=== PATIENT | female | born 1965 | race Caucasian/White ===

== ENCOUNTER 2019-01-25 11:59 | Day surgery (SDC) | payer OTHER ==
[~2019-01-25] VITALS: Ht 157.4 cm; Wt 50.4 kg
[~2019-01-25 11:59] MED LIST: BACITRACIN15 GM TOP; IRON18 MG PO; KEFLEX500 MG PO; MULTI VITAMIN1 EACH PO
--- NOTE | 2019-01-25 15:04 | NUR ---
01/25/19 1504 Era Olson 1500-PATIENT ARRIVED TO PACU ON 2L NC AWAKE DROWSY DENIES PAIN OR NAUSEA. ABDOMEN SOFT ENCOURAGED TO PASS GAS. DOZES BACK TO SLEEP. RR EVEN.
--- NOTE | 2019-01-26 14:41 | OR ---
[facility] [address], [place] [address] Signed DATE OF OPERATION: 01/25/2019 SURGEON: Gideon Linda MD PREOPERATIVE DIAGNOSES: 1. Family history of colon cancer, paternal grandmother. 2. Screening colonoscopy. POSTOPERATIVE DIAGNOSIS: Polyps x3. PROCEDURE: Total colonoscopy to cecum with cold snare polypectomy x1 and cold morcellation polypectomy x2. ANESTHESIA: Intravenous sedation, fentanyl 100 mcg, and Versed 5 mg. INDICATION: This 53-year-old white woman is a patient of Dr. Ortega and formally Dr. Garcia. She is known to me from 2004 having undergone laparoscopic cholecystectomy. She is here for a screening colonoscopy on the basis of her age. She does have family history of colon cancer in a paternal grandmother. She has no symptoms of bleeding, diarrhea, or constipation herself. She understands the risk of bleeding, infection, and perforation related to colonoscopy and wished to proceed. FINDINGS: The prep was excellent. Complete colonoscopy was undertaken to the cecum without question. There were 3 polyps noted, one in the sigmoid, two in the rectosigmoid, all excised with combination of techniques. DESCRIPTION OF PROCEDURE: The patient was brought to the endoscopy suite and placed in lateral decubitus position given intravenous sedation to the point of slurred speech and nystagmus. Digital rectal examination was normal. An Olympus video colonoscope was passed in the rectum and manipulated throughout the colon ultimately intubating the cecum itself. The ileocecal valve and appendiceal orifice were normal. Electronically Signed By: GIDEON LINDA MD 01/26/19 1441 PATIENT NAME: EDEN RUBY OPERATIVE REPORT DATE OF : 69 REPORT #: [id number] PHYSICIAN: GIDEON LINDA MD PCP: Hanny GARCIA MD REPORT IS CONFIDENTIAL AND NOT TO BE RELEASED WITHOUT AUTHORIZATION [facility] [address], [place] [address] Signed The scope was withdrawn from the cecum and examination upon withdrawal of scope showed no sign of abnormality until approximately 60 mL from the anal verge where a sessile somewhat larger polyp was noted. This was excised with cold snare technique without problem. The lesion was removed and passed for pathology. Further withdrawal of scope showed two smaller such polyps in the rectosigmoid. Both were excised with cold morcellation technique. Retroflexed view of the rectum was normal. Scope was removed. The patient was taken to recovery room in good condition. CONCLUDING DIAGNOSIS: Polyps x3. PLAN: Repeat colonoscopy in 3 years, sooner if clinically indicated. We will review her pathology report as well. If all the polyps were hyperplastic, then consideration would be made for a more lengthy surveillance. MD DAVID Monge/FROILAN /[id number] cc: Lukasz Ortega MD Copies: LUKASZ ORTEGA MD ~ Electronically Signed By: GIDEON LINDA MD 01/26/19 1441 PATIENT NAME: EDEN RUBY OPERATIVE REPORT DATE OF : 69 REPORT #: [id number] PHYSICIAN: GIDEON LINDA MD PCP: Hanny GARCIA MD REPORT IS CONFIDENTIAL AND NOT TO BE RELEASED WITHOUT AUTHORIZATION
== END 2019-01-25 15:55 | disposition home or self-care (01) ==
LOC: OPS 11:59 → DS 12:01 → OPS 13:00
PROVIDERS: Surgery
PROC: 0DBN8ZZ Excision of Sigmoid Colon, Via Natural or Artificial Opening Endoscopic (ICD-10-PCS; principal; 2019-01-25 13:00)
DX: Z12.11 Encounter for screening for malignant neoplasm of colon (principal); D12.5 Benign neoplasm of sigmoid colon; D12.7 Benign neoplasm of rectosigmoid junction; Z80.0 Family history of malignant neoplasm of digestive organs; Z88.0 Allergy status to penicillin; Z90.49 Acquired absence of other specified parts of digestive tract
CPT/HCPCS: 99153; G0500; J2250; J3010; J7120

== ENCOUNTER 2025-05-26 09:39 | Day surgery (SDC) | payer OTHER ==
[~2025-05-26] VITALS: Ht 157.5 cm; Wt 49.1 kg
[~2025-05-26 09:39] MED LIST changes: +IBLOOD GLUCOSE TEST STRIP 1 EA TEST VI PRN; +LACTATED RINGER'S 1,000 ML IV SCH; +LIDOCAINE HCL 1% 5 ML SDV INJ ONE; +LIDOCAINE HCL 4% 50 ML BTL TOP SCH
[2025-05-26 10:09] VITALS: BP 105/74
[2025-05-26] MEDS ORDERED: LEVOTHYROXINE50 MCG PO (10:10)
[2025-05-26] MEDS ORDERED: MENEST0.3 MG PO (10:13)
[2025-05-26] MEDS ORDERED: PROGESTERONE200 MG PO (10:14)
[2025-05-26] MEDS ORDERED: MIDAZOLAM HCL 2 MG/2 ML VIAL ONE (10:48)
[2025-05-26] MEDS ORDERED: fentaNYL citrate 100 MCG/2 ML VIAL ONE (10:48)
[2025-05-26] MEDS ORDERED: MIDAZOLAM HCL 5 MG/5 ML VIAL ONE (10:50)
--- NOTE | 2025-05-26 11:35 | NUR ---
05/26/25 1135 Marli Quezada 1124- PT ARRIVES TO PACU IN STRETCHER. BREATHING IS EVEN AND UNLABORED. PT IS LOOKING AROUND PACU AND ORIENTED TO PACU. MONITORS PUT IN PLACE. PT DENIES PAIN AND NAUSEA. 2L OF O2 IN PLACE VIA NC. LR INFUSING. BEDSIDE REPORT RECIEVED.
[2025-05-26 13:28] VITALS: BP 94/67
--- NOTE | 2025-05-27 16:22 | OR ---
[facility] [address], [place] [address] Signed DATE OF OPERATION: 05/26/2025 SURGEON: Gideon Linda MD PREOPERATIVE DIAGNOSES: 1. Postprandial bloating and fullness. 2. History of malignancy of tongue, status post resection and therapy. POSTOPERATIVE DIAGNOSIS: Normal esophagus, stomach and duodenum. PROCEDURE: Esophagogastroduodenoscopy with biopsy. ANESTHESIA: Intravenous sedation, fentanyl 100 mcg, and Versed 3 mg. INDICATION: This 59-year-old white woman is a patient of MALACHI Giordano. She was referred with an epigastric hernia, which is incarcerated. It is not particularly painful at this time. A CT scan of the abdomen is performed on March 23, 2025, confirming a fat containing supraumbilical hernia. There was no evidence of other abnormality. She has noted weight loss over time, now down to 108 pounds, previously 119. The patient has history of partial glossectomy for malignancy as well as distant history of melanoma of the skin with resection. She has bloating fullness in addition to her weight loss and and it was my clinical suspicion this may be biliary related but she has already had cholecystectomy. I have recommended upper endoscopy to assess for peptic disease or other causes of her poor appetite, bloating and weight loss, specifically to assure no malignancy. The risk of bleeding, infection, and perforation related to upper endoscopy were discussed with her. She understands and wished to proceed. FINDINGS: The study was normal including the esophagus, stomach and duodenum. CLOtest was negative 20 minutes postprocedure. DESCRIPTION OF PROCEDURE: The patient was brought to the endoscopy suite and placed in lateral decubitus position, given intravenous sedation to the point of slurred speech and nystagmus. Preoperative lidocaine application to hypopharynx had been undertaken. Full cardiopulmonary Electronically Signed By: GIDEON LINDA MD 05/27/25 1622 PATIENT NAME: EDEN RUBY OPERATIVE REPORT DATE OF : 69 REPORT #: [id number] PHYSICIAN: GIDEON LINDA MD PCP: CHANDAN FAULKNER REPORT IS CONFIDENTIAL AND NOT TO BE RELEASED WITHOUT AUTHORIZATION [facility] [address], [place] [address] Signed monitoring was maintained. An Olympus video upper endoscope was passed in the hypopharynx. The vocal cords were normal. Scope was passed into the esophagus and examination of the esophagus was normal. Stomach was normal as well. Pylorus was normal. Scope was passed through into the duodenum, which was normal. Biopsies were taken in the distal duodenum to assess for celiac disease. The scope was withdrawn and biopsies then taken of the antrum for both BLANCA and pathologic testing. Retroflexed view showed a normal flap valve. Withdrawal to the distal esophagus allowed for biopsy of the distal esophagus and ultimately mid esophagus. The scope was removed. The patient was taken to recovery room in good condition. CONCLUDING DIAGNOSIS: Endoscopically normal upper gastrointestinal tract. PLAN: She will follow through with planned repair of epigastric hernia MD DAVID Monge/ALEXL /[id number] cc: MALACHI Giordano Copies: CHANDAN FAULKNER ~ Electronically Signed By: GIDEON LINDA MD 05/27/25 1622 PATIENT NAME: EDEN RUBY OPERATIVE REPORT DATE OF : 69 REPORT #: [id number] PHYSICIAN: GIDEON LINDA MD PCP: CHANDAN FAULKNER REPORT IS CONFIDENTIAL AND NOT TO BE RELEASED WITHOUT AUTHORIZATION
--- NOTE | 2025-05-31 12:54 | PATH ---
[facility] [address], [place] [address] Signed SPECIMEN(S): A DUODENAL BIOPSY SPECIMEN(S): B ANTRUM BIOPSY SPECIMEN(S): C LOWER ESOPHAGEAL BIOPSY SPECIMEN(S): D LOWER ESOPHAGEAL BIOPSY SPECIMEN SOURCE: A. DUODENAL BIOPSY B. ANTRUM BIOPSY C. LOWER ESOPHAGEAL BIOPSY D. LOWER ESOPHAGEAL BIOPSY CLINICAL HISTORY: Upper abdominal pain. FINAL PATHOLOGIC DIAGNOSIS: A. Duodenal biopsy: - Benign duodenal mucosa with partial villous effacement and increased epithelial lymphocytes. - See Comment. B. Antrum biopsy: - Benign gastric mucosa with focal slight chronic inflammation. - Negative for Helicobacter organisms on immunostained sections. C. Lower esophageal biopsy: - Benign esophageal epithelium, negative for increased epithelial eosinophils. - Negative for glandular mucosa. D. Lower esophageal biopsy: - Benign esophageal epithelium, negative for increased epithelial eosinophils. - Negative for glandular mucosa. COMMENT: Part A) The differential diagnosis includes emerging or partially treated celiac disease, lymphocytic enteritis, medication effect, and other causes. Clinical correlation requested. JVR:smn MICROSCOPIC EXAMINATION: Histologic sections of all submitted blocks are examined by light microscopy. These findings, together with the gross examination, support the pathologic diagnosis. B. A Helicobacter pylori immunostain is performed with appropriate positive and negative controls on block B1 and is negative for organisms. PATIENT NAME: EDEN RUBY PATHOLOGY DATE OF : 69 REPORT #: [id number] PHYSICIAN: JOHANNA SUTTON PCP: CHANDAN FAULKNER REPORT IS CONFIDENTIAL AND NOT TO BE RELEASED WITHOUT AUTHORIZATION [facility] [address], [place] [address] Signed JVR:smn GROSS DESCRIPTION: A. The specimen, labeled and designated "Malcolm, Elba, 1." and designated on the requisition "duodenum biopsy," is received in formalin and consists of five zamora soft tissue fragments that measure 0.2-0.4 cm in greatest dimension. The specimen is entirely submitted in (A1). B. The specimen, labeled and designated "Malcolm, Elba, 2." and designated on the requisition "antrum/pylorus biopsy," is received in formalin and consists of two zamora soft tissue fragments that measure 0.5 and 0.6 cm in greatest dimension. The specimen is entirely submitted in (B1). C. The specimen, labeled and designated "Malcolm, C, 3." and designated on the requisition "lower esophagus biopsy," is received in formalin and consists of four white-zamora soft tissue fragments that measure 0.1-0.4 cm in greatest dimension. The specimen is entirely submitted in (C1). D. The specimen, labeled and designated "Malcolm, Elba, 4." and designated on the requisition "lower esophagus biopsy," is received in formalin and consists of two white-zamora soft tissue fragments that measure 0.6 and 0.7 cm in greatest dimension. The specimen is entirely submitted in (D1). FB (under the direct supervision of a pathologist) The Gross Description was prepared using a voice recognition system. The report was reviewed for accuracy; however, sound-alike word errors, addition and/or deletions may occur. If there is any question about this report, please contact Client Services. ADDITIONAL NOTES: Immunohistochemical and/or in situ hybridization studies if performed on this case included appropriate positive controls that reacted as expected. This test was developed and its performance characteristics determined by [facility]. It has not been cleared or approved by the U.S. Food and Drug Administration. The FDA has determined that such clearance or approval is not necessary. This test is used for clinical purposes. It should not be regarded as investigational or for research. [facility] is certified under the Clinical Laboratory Improvement Amendments of 1988 (CLIA) as qualified to perform high complexity clinical laboratory testing. This assay has not been validated for specimens that have been decalcified. PATIENT NAME: EDEN RUBY PATHOLOGY DATE OF : 69 REPORT #: [id number] PHYSICIAN: GLORIANXT-ID PATHOLOGY PCP: CHANDAN FAULKNER REPORT IS CONFIDENTIAL AND NOT TO BE RELEASED WITHOUT AUTHORIZATION [facility] [address], [place] [address] Signed PERFORMING LABORATORY: Technical component was performed by [facility], [address] [place] [address] (CLIA# [id number]). Professional interpretation was performed by [facility] - [facility], [address] [place] [address], [place] [address] (CLIA#: [id number]). Diagnostician: Gerardo Roche MD Pathologist Electronically Signed 05/31/2025 Copies: ~ PATIENT NAME: EDEN RUBY PATHOLOGY DATE OF : 69 REPORT #: [id number] PHYSICIAN: JOHANNA PATHOLOGY PCP: CHANDAN FAULKNER REPORT IS CONFIDENTIAL AND NOT TO BE RELEASED WITHOUT AUTHORIZATION
== END 2025-05-26 12:15 | disposition home or self-care (01) ==
LOC: DS 09:39
PROVIDERS: ATTEND Surgery
PROC: 0DB68ZX Excision of Stomach, Via Natural or Artificial Opening Endoscopic, Diagnostic (ICD-10-PCS; 2025-05-26)
PROC: 0DB98ZX Excision of Duodenum, Via Natural or Artificial Opening Endoscopic, Diagnostic (ICD-10-PCS; principal; 2025-05-26 10:40)
DX: K29.50 Unspecified chronic gastritis without bleeding (principal); K43.6 Other and unspecified ventral hernia with obstruction, without gangrene; E03.8 Other specified hypothyroidism; Z88.0 Allergy status to penicillin; Z79.890 Hormone replacement therapy; Z79.899 Other long term (current) drug therapy; Z78.0 Asymptomatic menopausal state; Z85.810 Personal history of malignant neoplasm of tongue; Z90.49 Acquired absence of other specified parts of digestive tract
CPT/HCPCS: G0500; J2250; J3010

== ENCOUNTER 2025-06-09 07:51 | Day surgery (SDC) | payer OTHER ==
[~2025-06-09] VITALS: Ht 157.5 cm; Wt 49.0 kg
[~2025-06-09 07:51] MED LIST changes: +CEFAZOLIN SODIUM 2 GM in SODIUM CHLORIDE 0.9% 100 ML IV SCH; +HEParin SOD (PORCINE) 5,000 UNIT/ML SDV SUB-Q SCH; +LEVOTHYROXINE50 MCG PO; -LIDOCAINE HCL 4% 50 ML BTL TOP SCH; +MENEST0.3 MG PO; +PROGESTERONE200 MG PO
[2025-06-09] MEDS ORDERED: ROCURONIUM BROMIDE 50 MG/5 ML SYR ONE (08:03)
[2025-06-09] MEDS ORDERED: LIDOCAINE HCL 2% 5 ML SDV ONE (08:03)
[2025-06-09] MEDS ORDERED: KETOROLAC TROMETHAMINE 30 MG/ML VIAL ONE (08:03)
[2025-06-09] MEDS ORDERED: DEXAMETHASONE SOD PHOS 4 MG/ML VIAL ONE (08:03)
[2025-06-09] MEDS ORDERED: fentaNYL citrate 100 MCG/2 ML VIAL ONE (08:04)
[2025-06-09] MEDS ORDERED: MIDAZOLAM HCL 2 MG/2 ML VIAL ONE (08:04)
[2025-06-09 08:10] VITALS: BP 109/69
[2025-06-09] MEDS ORDERED: VITAMIN D-40010 MCG (08:13)
[2025-06-09] MEDS ORDERED: CALCIUM500 M1 PO (08:13)
[2025-06-09] MEDS ORDERED: ACETAMINOPHEN 500 MG TAB PO PRN (10:45)
[2025-06-09] MEDS ORDERED: OXYCODONE/APAP 7.5/325 TAB PO PRN (10:45)
[2025-06-09] MEDS ORDERED: NALOXONE HCL 0.4 MG SYR IV PRN (10:45)
[2025-06-09] MEDS ORDERED: IBUPROFEN 600 MG TAB PO PRN (10:45)
[2025-06-09] MEDS ORDERED: LACTATED RINGER'S 1,000 ML IV SCH (10:45)
[2025-06-09] MEDS ORDERED: OXYCODON-ACETA1 EAC2 PO (10:48)
[2025-06-09] MEDS ORDERED: IBUPROFEN600 MG PO (10:48)
[2025-06-09] MEDS ORDERED: ACETAMINOPHEN500 MG PO (10:48)
--- NOTE | 2025-06-09 10:48 | NUR ---
06/09/25 1048 Sheets,Taylor 1042 PT ARRIVED TO PACU ON 6L VIA MASK, RESP EVEN AND UNLABORED WITH ORAL AIRWAY IN PLACE. SHALLOW BREATHING NOTED.
[2025-06-09 11:10] VITALS: BP 110/60
--- NOTE | 2025-06-09 11:14 | NUR ---
1105- PT TRANSFERED TO DAY SURGERY ROOM 8. BEDSIDE REPORT RECIEVED FROM MYRNA TANG. SURGICAL SITE ASSESSED TOGETHER. PT DENIES PAIN OR NAUSEA. PT IS GIVEN APPLE JUICE AND SAUCE REQUESTED. LR INFUSING. DISCHARGE CRITERIA DISCUSSED. PT IS UNDERSTANDING. WARM AIR PROVIDED. VITAL SIGNS OBATINED. QUESTIONS AND CONCERNS ANSWERED.
[2025-06-09 11:59] VITALS: BP 95/62
--- NOTE | 2025-06-09 12:13 | NUR ---
1205- PT IS RESTING IN THE STRETCHER. IS AT BEDSIDE. PT REPORTS 1/10 PAIN AND NO NAUSEA. SURGICAL SITE ASSESSED. PT IS NOW SALINE LOCKED. DISCHARGE PAPERWORK AND EDUCATION GONE OVER WITH PT AND . ALL QUESTIONS AND CONCERNS ANSWERED. WATER PROVIDED FOR PT BY REQUEST. PT WAS ABLE TO EAT SOME APPLE SAUCE AND JUICE. CALL LIGHT IN REACH. BED IS LOCKED IN THE LOWEST POSITION.
--- NOTE | 2025-06-09 12:35 | NUR ---
1230-PT UP TO RESTROOM WITH STAFF ASSISTANCE FOR SAFETY. PT ABLE TO VOID APPROX 200 ML OF YELLOW URINE. 1235-IV REMOVED. TIP APPEARS INTACT. PRESSURE DRSG APPLIED WITH GAUZE AND COBAN. PT DRESSING FOR DISCHARGE WITH FAMILY ASSISTANCE. CALL LIGHT AND PERSONAL BELONGINGS WITHIN PT REACH.
--- NOTE | 2025-06-09 12:40 | NUR ---
PT DISCHARGED FROM DS VIA WC TO PASSENGER SIDE OF FAMILIES VEHICLE. ALL PERSONAL BELONGINGS TAKEN WITH PT.
[2025-06-09] MEDS ORDERED: SEVOFLURANE 250 ML BTL INH ONE (15:07)
--- NOTE | 2025-06-09 18:26 | OR ---
[facility] [address], [place] [address] Signed DATE OF OPERATION: 06/09/2025 SURGEON: Gideon Linda MD PREOPERATIVE DIAGNOSIS: Incarcerated supraumbilical hernia. POSTOPERATIVE DIAGNOSIS: Incarcerated supraumbilical hernia, fascial defect 1.5 cm (incarcerated viscus omental fat). PROCEDURES: 1. Excision of portion of omentum. 2. Repair of fascial defect of incarcerated supraumbilical hernia. Fascial defect 1.5 cm. ANESTHESIA: General LMA, Ksenia Franc, [employer] and local 10 mL of 0.25% Marcaine with epinephrine. INDICATION: This 59-year-old white woman is a patient of MALACHI Giordano. The patient has had complaints of epigastric pain, which have been rather progressive. Several months ago, she noticed increasingly sizable mass in the epigastric area superior to the umbilicus. A CT scan performed under the direction of MALACHI Benson on March 23 demonstrated fat containing supraumbilical hernia. Hernia sac measured 23 mm. There was no sign of inflammation. The patient has postprandial "fullness." She has had cholecystectomy in the past. She did undergo upper endoscopy, which showed no findings to account for symptoms otherwise. She is now here to undergo repair of the incarcerated supraumbilical hernia. She understands the risk of bleeding, infection, recurrent hernia, and other unforeseen complications. Understand that she wished to proceed. FINDINGS: Indeed incarcerated omentum was noted. This was excised. The fascial defect measured 1.5 cm in aggregate. Repair consisted of transverse closure with interrupted 0 Prolene suture. There were no complications. DESCRIPTION OF PROCEDURE: The patient was brought to the operating room, given a general LMA type anesthetic. Preoperative antibiotic Ancef was given. Sequential compression device stockings were Electronically Signed By: GIDEON LINDA MD 06/09/25 6725 PATIENT NAME: DEEN RUBY OPERATIVE REPORT DATE OF : 69 REPORT #: [id number] PHYSICIAN: GIDEON LINDA MD PCP: CHANDAN FAULKNER REPORT IS CONFIDENTIAL AND NOT TO BE RELEASED WITHOUT AUTHORIZATION [facility] [address], [place] [address] Signed used. The abdomen was prepared with a chlorhexidine solution and draped sterilely. A supraumbilical incision was made and dissection carried through the subcutaneous tissue with blunt and electrocautery dissection identifying protruding fat. The protruding fat was free from surrounding soft tissue and was found to be incarcerated. It was not strangulated or infarcted. It was ultimately excised revealing the hernia defect, which was approximately 1.5 cm in size. The omentum was plucked from the intraabdominal cavity to assure hemostasis of that portion that was excised. The fascial defect was then reapproximated with interrupted 0 Prolene suture in a vertical mattress configuration. Three such sutures were used. The defect was 1.5 cm. 10 mL of 0.25% Marcaine with epinephrine was injected locally. The wound was closed in layers. Interrupted 2-0 Vicryl and running subcuticular 3-0 Vicryl for the skin. Steri-Strips were applied as was an Acticoat dressing. She was ultimately extubated and transferred to the recovery room in good condition having suffered no complications. Sponge, needle, and instrument counts reported as correct x3. MD DAVID Monge/ALEXL /[id number] cc: MALACHI Giordano Copies: CHANDAN FAULKNER ~ Electronically Signed By: GIDEON LINDA MD 06/09/25 1826 PATIENT NAME: EDEN RUBY MOORE OPERATIVE REPORT DATE OF : 69 REPORT #: [id number] PHYSICIAN: GIDEON LINDA MD PCP: CHANDAN FAULKNER REPORT IS CONFIDENTIAL AND NOT TO BE RELEASED WITHOUT AUTHORIZATION
--- NOTE | 2025-06-13 10:59 | PATH ---
[facility] [address] [facility] [place], [place] [address] Signed SPECIMEN(S): A PORTION OF OMENTUM SPECIMEN SOURCE: A. PORTION OF OMENTUM CLINICAL HISTORY: Incarcerated epigastric hernia FINAL PATHOLOGIC DIAGNOSIS: Portion of omentum: - Benign fibro adipose tissue and vasculature with features focally consistent with clinical omentum. - Negative for atypical features. [facility] MICROSCOPIC EXAMINATION: Histologic sections of all submitted blocks are examined by light microscopy. These findings, together with the gross examination, support the pathologic diagnosis. GROSS DESCRIPTION: The specimen, labeled and designated "Malcolm, portion of omentum," is received in formalin and consists of irregular shaped yellow-zamora fibroadipose tissue fragment that measures 3.0 x 1.4 x 1.1 cm. Specimen is inked. Sectioning through the specimen to reveal regular adipose tissue. No abnormalities are grossly identified. Resident Programs Assistant sections are submitted in (A1). JS (under the direct supervision of a pathologist) The Gross Description was prepared using a voice recognition system. The report was reviewed for accuracy; however, sound-alike word errors, addition and/or deletions may occur. If there is any question about this report, please contact Client Services. ADDITIONAL NOTES: Immunohistochemical and/or in situ hybridization studies if performed in this case included appropriate positive controls that reacted as expected. This test was developed and its performance characteristics determined by [facility]. It has not been cleared or approved by the U.S. Food and Drug Administration. The FDA has determined that such clearance or approval is not necessary. This test is used for clinical purposes. It should not be regarded PATIENT NAME: EDEN RUBY PATHOLOGY DATE OF : 69 REPORT #: [id number] PHYSICIAN: JOHANNA SUTTON PCP: CHANDAN FAULKNER REPORT IS CONFIDENTIAL AND NOT TO BE RELEASED WITHOUT AUTHORIZATION [facility] [address] [place], [place] [address] Signed as investigational or for research. [facility] is certified under the Clinical Laboratory Improvement Amendments of 1988 (CLIA) as qualified to perform high complexity clinical laboratory testing. PERFORMING LABORATORY: Technical component was performed by [facility], [address] [place] [id number] (CLIA# [id number]). Professional interpretation was performed by [facility] - [place] - [address] [place], [place] [address] [address] (CLIA#: [id number]). Diagnostician: Gerardo Roche MD Pathologist Electronically Signed 06/13/2025 Copies: ~ PATIENT NAME: EDEN RUBY PATHOLOGY DATE OF : 69 REPORT #: [id number] PHYSICIAN: JOHANNA PATHOLOGY PCP: CHANDAN FAULKNER REPORT IS CONFIDENTIAL AND NOT TO BE RELEASED WITHOUT AUTHORIZATION
== END 2025-06-09 12:40 | disposition home or self-care (01) ==
LOC: DS 07:51
PROVIDERS: ATTEND Surgery
PROC: 0WQF0ZZ Repair Abdominal Wall, Open Approach (ICD-10-PCS; principal; 2025-06-09 09:30)
DX: K43.6 Other and unspecified ventral hernia with obstruction, without gangrene (principal); E03.8 Other specified hypothyroidism; Z78.0 Asymptomatic menopausal state
CPT/HCPCS: 00750; C1781; J0688; J1100; J1644; J1885; J2003; J2250; J2405; J2704; J3010; J3490; J7121